=== PATIENT | male | born 1970 | race African-American/Black ===

== ENCOUNTER → 2020-04-27 | Outpatient (CLI) | payer OTHER ==
--- NOTE | 2020-04-27 10:14 | Diagnostic Imaging Report ---
MRI SPINE LUMBAR WO HISTORY: Low back, hip, and bilateral leg pain COMPARISON: None. TECHNIQUE: Sagittal T1, sagittal T2, sagittal STIR, axial T2, coronal T2, and axial proton density weighted images of the lumbar spine were obtained without contrast. DISCUSSION: Number of non-rib bearing lumbar vertebral bodies: 5. Alignment: Normal lordosis. No scoliosis. Vertebrae: No fractures, infection or neoplasm. Conus medullaris: The conus terminates at the mid L3 level, which is slightly low. Cauda equina: No masses or arachnoiditis. Posterior paraspinal muscles: Well preserved. No signal abnormalities. Soft tissues: Approximately 4.1 cm ovoid subcutaneous T2 hyperintense lesion in the left posterior chest wall (superficial to the left latissimus dorsi muscle) may be a lipoma; this is only imaged on the coronal T2 images. Approximately 1.4 cm T2 hyperintense lesion in the mid right kidney is most likely a cyst. Similar smaller T2 hyperintense lesion in the left kidney is also likely a cyst. Questionable subcentimeter nodular T2 hyperintense lesion in the posteromedial hepatic dome, seen only on coronal T2 images, may be a cyst or hemangioma. Mild to moderate L5-S1 disc degeneration is associated with nonspecific inflammatory endplate changes, eccentric to the right. T12-L1: Patent canal and foramina. L1-L2: Minimal disc bulge without significant canal or foraminal stenosis. L2-L3: Patent canal and foramina. L3-L4: Patent canal and foramina. L4-L5: Minimal disc bulge without significant canal or foraminal stenosis. L5-S1: Minimal canal stenosis due to disc bulge and small central disc extrusion (with minimal inferior migration). Mild to moderate right and mild left foraminal stenoses due to disc bulge and facet arthrosis. IMPRESSION: 1. Mild to moderate L5-S1 disc degeneration with nonspecific mild inflammatory endplate changes, eccentric to the right. 2. Mild to moderate right and mild left L5-S1 degenerative foraminal stenoses. 3. No significant central canal stenosis. 4. Slightly low-lying conus terminates at the mid L3 level. 5. Possible 4.1 cm subcutaneous lipoma (incompletely characterized/imaged) in the left posterior chest wall (superficial to the left latissimus dorsi muscle). Signed by: Dr. Christiano Haywood M.D. on 04/27/2020 10:10 AM
== END ==
LOC: MRI 08:21
PROVIDERS: ATTEND Family Medicine
DX: M51.26 Other intervertebral disc displacement, lumbar region (principal); S39.012D Strain of muscle, fascia and tendon of lower back, subsequent encounter
CPT/HCPCS: 72148